=== PATIENT | male | born 1980 | race Caucasian/White ===

== ENCOUNTER 2019-06-15 10:07 | Emergency (ER) | payer SELFPAY ==
[2019-06-15] MEDS ORDERED: Sodium Chloride 0.9% 10 ML Syringe FLUSH PRN (10:23)
[2019-06-15] MEDS ORDERED: Sodium Chloride 0.9% 2.5 ML Syringe FLUSH PRN (10:23)
--- NOTE | 2019-06-15 10:28 | EDM.PDOC ---
ED HPI GENERAL MEDICAL PROBLEM - General Chief Complaint: Neuro Symptoms/Deficits Stated Complaint: STROKE CODE Time Seen by Provider: 06/15/19 10:18 - History of Present Illness INITIAL COMMENTS - FREE TEXT/NARRATIVE: HISTORY AND PHYSICAL: History of present illness: Patient a 39-year-old white male who presents with a concern of right-sided weakness and difficulty with his speech he noticed the symptoms this morning he states he knew what he wanted to say but was unable to get the words out this was witnessed by his brother had right-sided weakness which has resolved as his speech currently. He does state that he still doesn't feel right in that he has intermittent numbness on his right side. He denies drugs denies prior stroke prior heart attacks diabetes or hypertension. NIH stroke scale on arrival was 1 Review of systems: As per history of present illness and below otherwise all systems reviewed and negative. Past medical history: As per history of present illness and as reviewed below otherwise noncontributory. Surgical history: As per history of present illness and as reviewed below otherwise noncontributory. Social history: No reported history of drug or alcohol abuse. Family history: As per history of present illness and as reviewed below otherwise noncontributory. Physical exam: HEENT: Atraumatic, normocephalic, pupils reactive, negative for conjunctival pallor or scleral icterus, mucous membranes moist, throat clear, neck supple, nontender, trachea midline. Lungs: Clear to auscultation, breath sounds equal bilaterally, chest nontender. Heart: S1S2, regular, negative for clicks, rubs, or JVD. Abdomen: Soft, nondistended, nontender. Negative for masses or hepatosplenomegaly. Negative for costovertebral tenderness. Pelvis: Stable nontender. Genitourinary: Deferred. Rectal: Deferred. Extremities: Atraumatic, negative for cords or calf pain. Neurovascular unremarkable. Neuro: Awake, alert, oriented. Cranial nerves II through XII unremarkable. Cerebellum unremarkable. Motor and sensory unremarkable throughout. Exam nonfocal. Diagnostics: CBC CMP troponin PT/INR urine drug screen UA chest x-ray CT brain EKG Accu-Chek on arrival was 98 Therapeutics: IV O2 monitor Impression: #1 transient ischemic attack Definitive disposition and diagnosis as appropriate pending reevaluation and review of above. - Related Data Allergies Allergy/AdvReac Type Severity Reaction Status Date / Time No Known Allergies Allergy Verified 06/15/19 10:16 Home Meds: Home Meds . [No Known Home Meds] 06/15/19 [History] Past Medical History - Past Health History Medical/Surgical History: Denies Medical/Surgical History HEENT History: Reports: None Cardiovascular History: Reports: None Respiratory History: Reports: None Gastrointestinal History: Reports: None Genitourinary History: Reports: None Musculoskeletal History: Reports: None Neurological History: Reports: None Psychiatric History: Reports: None Endocrine/Metabolic History: Reports: Obesity/BMI 30+ Hematologic History: Reports: None Immunologic History: Reports: None Oncologic (Cancer) History: Reports: None Dermatologic History: Reports: None - Past Surgical History Head Surgeries/Procedures: Reports: None HEENT Surgical History: Reports: None Cardiovascular Surgical History: Reports: None Respiratory Surgical History: Reports: None GI Surgical History: Reports: None Male Surgical History: Reports: None Endocrine Surgical History: Reports: None Neurological Surgical History: Reports: None Musculoskeletal Surgical History: Reports: Shoulder Surgery Oncologic Surgical History: Reports: None Dermatological Surgical History: Reports: None Social & Family History - Family History Family Medical History: Noncontributory Endocrine/Metabolic: Reports: Diabetes, type II Other Oncologic Family History: Multiple family members with cancer history patient states. - Tobacco Use Smoking Status *Q: Never Smoker - Recreational Drug Use Recreational Drug Use: No ED ROS GENERAL - Review of Systems Review Of Systems: ROS reveals no pertinent complaints other than HPI. ED EXAM, GENERAL - Physical Exam Exam: See Below (See dictation) Course - Vital Signs Last Recorded V/S: Last Vital Signs Temp Pulse 79 06/15/19 10:13 Resp 16 06/15/19 10:13 BP 154/104 H 06/15/19 10:13 Pulse Ox 97 06/15/19 10:13 - Orders/Labs/Meds Orders: Active Orders 24 hr Category Date Time Status Cardiac Monitoring [RC] . DIRECTED Care 06/15/19 10:23 Active EKG Documentation Completion [RC] STAT Care 06/15/19 10:23 Active Pulse Oximetry [RC] ASDIRECTED Care 06/15/19 10:23 Active Chest 1V Frontal [CR] Stat Exams 06/15/19 10:23 Taken COMPREHENSIVE METABOLIC PN,CMP [CHEM] Stat Lab 06/15/19 10:25 Received DRUG SCREEN, URINE [URCHEM] Stat Lab 06/15/19 10:23 Ordered TROPONIN I [CHEM] Stat Lab 06/15/19 10:25 Received UA RFX ROBBIE AND CULT IF INDIC [URIN] Stat Lab 06/15/19 10:23 Ordered Sodium Chloride 0.9% [Normal Saline] 1,000 ml Med 06/15/19 10:30 Active IV STAT Sodium Chloride 0.9% [Saline Flush] Med 06/15/19 10:23 Active 10 ml FLUSH ASDIRECTED PRN Sodium Chloride 0.9% [Saline Flush] Med 06/15/19 10:23 Active 2.5 ml FLUSH ASDIRECTED PRN Saline Lock Insert [OM.PC] Stat Oth 06/15/19 10:23 Ordered Medication Orders Sodium Chloride (Normal Saline) 1,000 mls @ 125 mls/hr IV STAT RYNE Last Admin: 06/15/19 10:36 Dose: 125 mls/hr Sodium Chloride (Saline Flush) 10 ml FLUSH ASDIRECTED PRN PRN Reason: Keep Vein Open Sodium Chloride (Saline Flush) 2.5 ml FLUSH ASDIRECTED PRN PRN Reason: Keep Vein Open Labs: Laboratory Tests 06/15/19 06/15/19 Range/Units 10:25 10:25 WBC 6.79 (4.0-11.0) K/uL RBC 5.27 (4.50-5.90) M/uL Hgb 15.4 (13.0-17.0) g/dL Hct 45.0 (38.0-50.0) % MCV 85.4 (80.0-98.0) fL MCH 29.2 (27.0-32.0) pg MCHC 34.2 (31.0-37.0) g/dL RDW Std Deviation 39.7 (28.0-62.0) fl RDW Coeff of Esther 13 (11.0-15.0) % Plt Count 177 (150-400) K/uL MPV 10.30 (7.40-12.00) fL Neut % (Auto) 68.4 (48.0-80.0) % Lymph % (Auto) 21.5 (16.0-40.0) % [place] % (Auto) 8.5 (0.0-15.0) % Eos % (Auto) 1.2 (0.0-7.0) % Baso % (Auto) 0.4 (0.0-1.5) % Neut # (Auto) 4.6 (1.4-5.7) K/uL Lymph # (Auto) 1.5 (0.6-2.4) K/uL [place] # (Auto) 0.6 (0.0-0.8) K/uL Eos # (Auto) 0.1 (0.0-0.7) K/uL Baso # (Auto) 0.0 (0.0-0.1) K/uL Nucleated RBC % 0.0 /100WBC Nucleated RBCs # 0 K/uL INR 1.01 Meds: Medications Generic Name Dose Route Start Last Admin Trade Name Freq PRN Reason Stop Dose Admin Sodium Chloride 1,000 mls @ 125 mls/hr 06/15/19 10:30 06/15/19 10:36 Normal Saline IV 125 mls/hr STAT RYNE Administration Sodium Chloride 10 ml 06/15/19 10:23 Saline Flush FLUSH ASDIRECTED PRN Keep Vein Open Sodium Chloride 2.5 ml 06/15/19 10:23 Saline Flush FLUSH ASDIRECTED PRN Keep Vein Open Discontinued Medications Generic Name Dose Route Start Last Admin Trade Name Freq PRN Reason Stop Dose Admin Acetaminophen 1,000 mg 06/15/19 10:54 06/15/19 10:57 Tylenol Extra Strength PO 06/15/19 10:55 1,000 mg ONETIME ONE Administration Acetaminophen Confirm 06/15/19 10:56 Tylenol Extra Strength Administered 06/15/19 10:57 Dose 1,000 mg .ROUTE .STK-MED ONE Departure - Departure Time of Disposition: 11:06 Disposition: DC/Tfer to Acute Hospital 02 Condition: Good Clinical Impression: Transient ischemic attack (TIA) - Discharge Information Referrals: PCP,Unknown [Primary Care Provider] - Forms: ED Department Discharge - My Orders Last 24 Hours: My Active Orders 06/15/19 10:23 Cardiac Monitoring [RC] . DIRECTED EKG Documentation Completion [RC] STAT Pulse Oximetry [RC] ASDIRECTED Chest 1V Frontal [CR] Stat DRUG SCREEN, URINE [URCHEM] Stat UA RFX ROBBIE AND CULT IF INDIC [URIN] Stat Sodium Chloride 0.9% [Saline Flush] 10 ml FLUSH ASDIRECTED PRN Sodium Chloride 0.9% [Saline Flush] 2.5 ml FLUSH ASDIRECTED PRN Saline Lock Insert [OM.PC] Stat 06/15/19 10:25 COMPREHENSIVE METABOLIC PN,CMP [CHEM] Stat TROPONIN I [CHEM] Stat 06/15/19 10:30 Sodium Chloride 0.9% [Normal Saline] 1,000 ml IV STAT - Assessment/Plan Last 24 Hours: My Active Orders 06/15/19 10:23 Cardiac Monitoring [RC] . DIRECTED EKG Documentation Completion [RC] STAT Pulse Oximetry [RC] ASDIRECTED Chest 1V Frontal [CR] Stat DRUG SCREEN, URINE [URCHEM] Stat UA RFX ROBBIE AND CULT IF INDIC [URIN] Stat Sodium Chloride 0.9% [Saline Flush] 10 ml FLUSH ASDIRECTED PRN Sodium Chloride 0.9% [Saline Flush] 2.5 ml FLUSH ASDIRECTED PRN Saline Lock Insert [OM.PC] Stat 06/15/19 10:25 COMPREHENSIVE METABOLIC PN,CMP [CHEM] Stat TROPONIN I [CHEM] Stat 06/15/19 10:30 Sodium Chloride 0.9% [Normal Saline] 1,000 ml IV STAT
[2019-06-15] MEDS ORDERED: Sodium Chloride 0.9% 1,000 ML IV SCH (10:30)
--- NOTE | 2019-06-15 10:42 | CT ---
INDICATION: Right-sided weakness. Speech difficulty. TECHNIQUE: CT head without contrast. COMPARISON: January 26, 2009. FINDINGS: CSF spaces: Within normal limits for age. Brain parenchyma and extra-axial spaces: The santacruz-white differentiation is normal. No sign of mass, hemorrhage, or midline shift. No extra-axial fluid collection. Skull base and calvarium: The visualized paranasal sinuses and mastoid air cells demonstrate no acute or significant findings. The visualized orbits are grossly unremarkable. No skull fractures. IMPRESSION: Unremarkable noncontrast head CT. No sign of CVA or other significant finding. Please note that all CT scans at this facility use dose modulation, iterative reconstruction, and/or weight-based dosing when appropriate to reduce radiation dose to as low as reasonably achievable. Dictated by Jono Mojica MD @ Jun 15 2019 10:37AM Signed by Dr. Jono Mojica @ Jun 15 2019 10:41AM
[2019-06-15] MEDS ORDERED: Acetaminophen 500 MG Tab PO ONE (10:54)
[2019-06-15] MEDS ORDERED: Acetaminophen 500 MG Tab ONE (10:56)
[2019-06-15 11:02] LABS: BLOOD UREA NITROGEN,BUN 17 mg/dL (7.0-18.0); CARBON DIOXIDE,CO2 24.9 mmol/L (21.0-32.0); CHLORIDE,CL 106 mmol/L (98-107); GLUCOSE RANDOM 105 mg/dL (74-106); POTASSIUM,K 4.1 mmol/L (3.5-5.1); SODIUM,NA 140 mmol/L (136-148)
[2019-06-15] MEDS ORDERED: Ondansetron 4 MG/2 ML SDV IVPUSH ONE (11:52)
[2019-06-15] MEDS ORDERED: Ondansetron 4 MG/2 ML SDV ONE (11:53)
--- NOTE | 2019-06-15 11:55 | CR ---
Chest: Frontal view of the chest was obtained utilizing portable technique. Comparison: No previous study. Heart size and mediastinum are normal. Lungs are clear. Bony structures are grossly intact. Impression: Nothing acute is appreciated on portable chest x-ray. Diagnostic code #1 MTDD
[2019-06-15 19:08] VITALS: BP 130/91; PULSE 67
== END 2019-06-15 11:55 ==
LOC: MW.ED 10:07
DX: G45.9 Transient cerebral ischemic attack, unspecified (principal)
CPT/HCPCS: 36415; 70450; 71045; 80053; 84484; 85025; 85610; 93005; 96361; 96374; 99285; A9270; J2405; J7040

== ENCOUNTER 2022-07-16 00:54 | Emergency (ER) | payer BC ==
[2022-07-16] MEDS ORDERED: Sodium Chloride 0.9% 1,000 ML IV ONE (01:13)
[2022-07-16] MEDS ORDERED: Sodium Chloride 0.9% 10 ML Syringe FLUSH PRN (01:13)
[2022-07-16] MEDS ORDERED: Sodium Chloride 0.9% 2.5 ML Syringe FLUSH PRN (01:13)
[2022-07-16] MEDS ORDERED: Ondansetron 4 MG/2 ML SDV IVPUSH ONE (01:13)
[2022-07-16] MEDS ORDERED: Ketorolac 30 MG/ML SDV IVPUSH ONE (01:15)
[2022-07-16] MEDS ORDERED: HYDROmorphone 1 MG/ML Syringe IVPUSH ONE (01:15)
[2022-07-16 01:34] LABS: CARBON DIOXIDE,CO2 26.6 mmol/L (21.0-32.0)
== END 2022-07-16 02:56 | disposition home or self-care (01) ==
LOC: MW.ED 00:54 → MERGE 00:54 → MW.ED 02:56
DX: K80.50 Calculus of bile duct without cholangitis or cholecystitis without obstruction (principal); E66.9 Obesity, unspecified; Z68.36 Body mass index [BMI] 36.0-36.9, adult; Z79.899 Other long term (current) drug therapy
CPT/HCPCS: 36415; 74176; 80053; 81003; 83690; 85025; 96374; 96375; 99284; J1170; J1885; J2405; J3490; J7030

== ENCOUNTER 2022-10-25 05:51 | Emergency (ER) | payer BC ==
[2022-10-25] MEDS ORDERED: Ondansetron 4 MG/2 ML SDV ONE (06:25)
[2022-10-25] MEDS ORDERED: Sodium Chloride 0.9% 10 ML Syringe FLUSH PRN (06:27)
[2022-10-25] MEDS ORDERED: Morphine 4 MG/ML Syringe IVPUSH ONE (06:27)
[2022-10-25] MEDS ORDERED: Sodium Chloride 0.9% 2.5 ML Syringe FLUSH PRN (06:27)
[2022-10-25 06:45] LABS: CARBON DIOXIDE,CO2 28.1 mmol/L (21.0-32.0)
[2022-10-25 06:55] LABS: CORONAVIRUS COVID-19 NAA POSITIVE (NEGATIVE); INFLUENZA A NAA NEGATIVE (NEGATIVE); INFLUENZA B NAA NEGATIVE (NEGATIVE); RESPIRATORY SYNCYTIAL VIR NAA NEGATIVE (NEGATIVE)
[2022-10-25] MEDS ORDERED: fentaNYL 50 MCG/ML SDV IVPUSH ONE ×2 (07:05→07:44)
[2022-10-25] MEDS ORDERED: Ketorolac 30 MG/ML SDV IVPUSH ONE (07:44)
[2022-10-25] MEDS ORDERED: Iopamidol 755 MG/ML 500 ML Multipack Bottle IVPUSH ONE (08:26)
== END 2022-10-25 10:28 | disposition home or self-care (01) ==
LOC: MW.ED 05:51
DX: U07.1 COVID-19 (principal); K80.50 Calculus of bile duct without cholangitis or cholecystitis without obstruction; E66.9 Obesity, unspecified; Z68.36 Body mass index [BMI] 36.0-36.9, adult
CPT/HCPCS: 0241U; 36415; 74177; 76705; 80053; 81003; 83605; 83690; 84484; 85025; 93005; 96374; 96375; 99284; J1885; J2270; J3010; J3490; Q9967; 93010

== ENCOUNTER 2022-11-12 08:24 | Day surgery (SDC) | payer BC ==
[~2022-11-12 08:24] MED LIST: Lactated Ringers 1,000 ML IV SCH; cefOXitin 2 GM in Premix Bag 1 BAG IV ONE
[2022-11-12] MEDS ORDERED: Albuterol 0.083% 2.5 MG/3 ML Neb Soln NEB PRN (08:55)
[2022-11-12] MEDS ORDERED: HYDROmorphone 1 MG/ML Syringe IVPUSH PRN (08:55)
[2022-11-12] MEDS ORDERED: Naloxone 0.4 MG/ML SDV IVPUSH PRN (08:55)
[2022-11-12] MEDS ORDERED: Metoclopramide 10 MG/2 ML SDV IVPUSH PRN (08:55)
[2022-11-12] MEDS ORDERED: fentaNYL 50 MCG/ML SDV IVPUSH PRN (08:55)
[2022-11-12] MEDS ORDERED: Ondansetron 4 MG/2 ML SDV IVPUSH PRN (08:55)
[2022-11-12] MEDS ORDERED: Morphine 2 MG/ML SYRINGE IVPUSH PRN (08:55)
[2022-11-12] MEDS ORDERED: ceFAZolin 1 GM Vial ONE (09:19)
[2022-11-12] MEDS ORDERED: Bupivacaine 0.5% 30 ML SDV ONE (09:19)
[2022-11-12] MEDS ORDERED: Scopolamine 1.5 MG Transdermal Patch TOP ONE (10:00)
[2022-11-12] MEDS ORDERED: Ketamine 500 mg/10 ML MDV ONE (10:04)
[2022-11-12] MEDS ORDERED: Propofol 200 MG/20 ML SDV ONE ×2 (10:04→12:03)
[2022-11-12] MEDS ORDERED: fentaNYL 250 MCG/5 ML SDV ONE ×3 (10:04→11:15)
[2022-11-12] MEDS ORDERED: Ropivacaine 0.5% 5 MG/ML 30 ML SDV ONE (10:09)
[2022-11-12] MEDS ORDERED: fentaNYL 100 MCG/2 ML SDV ONE (10:11)
[2022-11-12] MEDS ORDERED: cefOXitin 1 GM Vial ONE ×2 (10:38→11:48)
[2022-11-12] MEDS ORDERED: Ondansetron 4 MG/2 ML SDV ONE (10:46)
[2022-11-12] MEDS ORDERED: Magnesium Sulfate (4.06 MEQ/ML) 5 GM/10 ML SDV ONE (10:46)
[2022-11-12] MEDS ORDERED: Dexamethasone 4 MG/ML 5 ML MDV ONE (10:46)
[2022-11-12] MEDS ORDERED: Rocuronium Bromide 50 MG/5 ML Syringe ONE ×2 (11:08→11:19)
[2022-11-12] MEDS ORDERED: Ketorolac 30 MG/ML SDV ONE (11:19)
[2022-11-12] MEDS ORDERED: Sugammadex Sodium 200 MG/2 ML VIAL ONE (11:19)
[2022-11-12] MEDS ORDERED: ePHEDrine 50 MG/ML SDV ONE (11:19)
[2022-11-12] MEDS ORDERED: Phenylephrine 1% 10 MG/ML SDV ONE (11:19)
[2022-11-12] MEDS ORDERED: Lactated Ringers 1,000 ML IV SCH (12:15)
[2022-11-12] MEDS ORDERED: Morphine 4 MG/ML Syringe IVPUSH PRN (12:15)
[2022-11-12] MEDS ORDERED: Acetaminophen/HYDROcodone 325-5 MG Tab PO PRN (12:15)
== END 2022-11-12 14:10 | disposition home or self-care (01) ==
LOC: MW.SDS 08:24
PROVIDERS: ATTEND Surgery
DX: K80.10 Calculus of gallbladder with chronic cholecystitis without obstruction (principal); K82.8 Other specified diseases of gallbladder; E66.9 Obesity, unspecified; G45.9 Transient cerebral ischemic attack, unspecified; Z68.38 Body mass index [BMI] 38.0-38.9, adult; Z98.890 Other specified postprocedural states; Z87.891 Personal history of nicotine dependence
CPT/HCPCS: 47562; A9270; J0131; J0694; J1100; J1170; J2370; J2405; J2704; J2795; J3010; J3475; J3490; J7120; J0690; J1885

== ENCOUNTER 2022-11-26 16:44 | Emergency (ER) | payer BC ==
[2022-11-26] MEDS ORDERED: Lactated Ringers 1,000 ML IV SCH ×2 (18:15→19:30)
[2022-11-26] MEDS ORDERED: Ondansetron 4 MG/2 ML SDV IVPUSH ONE (18:16)
[2022-11-26 19:05] LABS: CARBON DIOXIDE,CO2 26.2 mmol/L (21.0-32.0); POTASSIUM,K 4.4 mmol/L (3.5-5.1)
[2022-11-26] MEDS ORDERED: Iopamidol 755 MG/ML 500 ML Multipack Bottle IVPUSH STA (19:50)
== END 2022-11-26 22:35 | disposition home or self-care (01) ==
LOC: MW.ED 16:44
DX: N28.0 Ischemia and infarction of kidney (principal); E66.9 Obesity, unspecified; Z68.43 Body mass index [BMI] 50.0-59.9, adult; Z86.73 Personal history of transient ischemic attack (TIA), and cerebral infarction without residual deficits; Z90.49 Acquired absence of other specified parts of digestive tract
CPT/HCPCS: 36415; 74177; 80053; 81003; 83690; 85025; 96361; 96374; 99284; J2405; J7120; Q9967